=== PATIENT | male | born 1945 | race Caucasian/White ===

== ENCOUNTER → 2017-05-13 | Outpatient (CLI) | payer MEDICARE ==
[~2017-05-13] MED LIST: ALBUAER3 INH; NAPR500T2 PO; TRAM50TA PO
--- NOTE | 2017-05-17 10:32 | RSPPFT ---
DATE OF PROCEDURE: 05/13/17 COMMENTS: Spirometry with FVC of 3.5, FEV1 of 2.4, FEV1/FVC ratio at 67%. A non-significant response to acutely inhaled bronchodilator noted. IMPRESSION: 1. Moderate airways obstruction. 2. Non-significant response to acutely inhaled bronchodilator.
== END ==
LOC: HRSP 09:55
PROVIDERS: ATTEND Family Medicine
DX: R06.02 Shortness of breath (principal)
CPT/HCPCS: 94060

== ENCOUNTER 2018-03-24 07:24 | Inpatient (IN) ==
[2018-03-24] MEDS ORDERED: Sodium Chlor 0.9% Inj 500 ML IV.SIG SCH (08:00)
[2018-03-24] MEDS ORDERED: Chlorhexidine Gluconate 2% 1 Pack (2 Cloths) TOPICAL ONE (08:00)
[2018-03-24] MEDS ORDERED: Metoprolol Tartrate 25 MG Tablet PO ONE (08:00)
[2018-03-24] MEDS ORDERED: Chlorhexidine 4% Topical 120 APPLIC/120 ML Bottle TOPICAL SCH (08:15)
[2018-03-24] MEDS ORDERED: ceFAZolin 2 GM Premix Inj 2 GM/50 ML PIGGYBACK IV.SIG SCH (09:00)
[2018-03-24] MEDS ORDERED: Vancomycin Inj 1,000 MG in Sodium Chlor 0.9% Inj 250 ML IV.SIG SCH (09:00)
[2018-03-24] MEDS ORDERED: SODIUM CHLOR 0.9% IV.SIG SCH (09:00)
[2018-03-24] MEDS ORDERED: Sodium Chlor 0.9% Inj 40 ML, Bupivacaine Liposo PF 1.3% Inj 20 ML P-ARTICULR SCH ×2 (09:00)
[2018-03-24] MEDS ORDERED: TRANEXAMIC ACID IV.SIG SCH (09:00)
[2018-03-24] MEDS ORDERED: fentaNYL Citrate Inj 100 MCG/2 ML Ampul ONE (11:28)
[2018-03-24] MEDS ORDERED: fentaNYL Citrate Inj 250 MCG/5 ML Ampul ONE (11:29)
[2018-03-24] MEDS ORDERED: Famotidine PF Inj 20 MG/2 ML Vial ONE (11:29)
[2018-03-24] MEDS ORDERED: Propofol Inj 500 MG/50 ML Vial ONE (11:46)
[2018-03-24] MEDS ORDERED: Bupivacaine/Dextrose 0.75% Inj 2 ML Ampul ONE (11:47)
[2018-03-24] MEDS ORDERED: Phenylephrine/NS 1000 MCG/10ML Syringe IV.PUSH ONE (11:59)
[2018-03-24] MEDS ORDERED: Bupivacaine/Epinephrine Inj 0.25% 50 ML Vial ONE (12:58)
[2018-03-24] MEDS ORDERED: Post-op Orders (for Pharmacy) OTHER STA (13:50)
[2018-03-24] MEDS ORDERED: Temazepam 15 MG Capsule PO PRN (13:50)
[2018-03-24] MEDS ORDERED: Morphine Inj 4 MG/ML Vial IV.PUSH PRN (13:50)
[2018-03-24] MEDS ORDERED: Bisacodyl 10 MG Supp RECTAL PRN (13:50)
--- NOTE | 2018-03-24 14:06 | P.OP ---
- Preoperative Diagnosis (1) Osteoarthritis of left hip - Postoperative Diagnosis (1) Osteoarthritis of left hip Date of procedure: 03/24/18 Procedure: Left total hip replacement arthroplasty, direct anterior exposure Anesthesia: GETA Surgeon: Emanuel Wagner MD Rounding Machine Operator: MAYURI Aguilera Operation and Findings: EBL: 300 cc INDICATION: This patient is a 72-year-old male with severe arthritis of the left hip. He has had extensive conservative care outlined in the attached records including medications, injections, altered activities and activity modification. He continues to be painful and symptomatic and now presents for surgical treatment. NOTE: Kim Aguilera PA-C was present for the entire surgical procedure as my hotel administrative assistant. In my medical opinion her skill and care was necessary for the proper management of this patient. COMPONENTS: COMPANY: [employer] CUP: [place], 56 mm, 100 series STEM: [place], size 15, high offset, hydroxyapatite-coated HEAD: Metal, 36 mm, +1.5, 12/14 taper PLASTIC: Altrex, 36 mm, neutral PROCEDURE: This patient was brought to the operating room and anesthetized in the supine position. The patient was positioned on the [place] table with the operative leg extended and the contralateral leg held position. The hip and leg was scrubbed with alcohol followed by Hibiclens followed by ChloraPrep and draped sterilely in the clean air suite. Preoperative fluoroscopic images were utilized. A templating x-ray was obtained and printed to be used during the case. A timeout was done and antibiotics were given within a routine time window. A 4 inch incision was made starting 2 cm distal and 2 cm lateral to the anterior superior iliac spine. The tensor fascia sirisha fascia was identified and opened longitudinally in line with the incision. Deep retraction allowed good visualization in the interval between the tensor fascia sirisha and the rectus and this was opened further. The posterior fascia was opened. Crossing vessels were coagulated appropriately. The anterior aspect of the hip capsule was identified. Retractors were placed above and below the capsule. The capsule was opened longitudinally. Stay sutures were utilized creating flaps for the anterior capsule. The femoral neck was cut at the right location and completed with an oscillating saw. The head and neck was removed and taken to the back table. The leg was externally rotated 60 degrees and traction placed on the extremity. The labrum was excised. A portion of the capsule was excised. Visibility was excellent. Retractors were positioned. Starting 6 mm from the final size reamer, we began reaming up to 1 mm from the anticipated size. This was visualized under fluoroscopy. A trial cup was positioned. This also was visualized under fluoroscopy and minor adjustments were made. The final reamer with a 56 reamer was utilized. The final cup was positioned in approximately 40 degrees of abduction and 20 degrees of forward flexion. This is visualized under fluoroscopy and was seated into the final position. Position was very satisfactory. A single hole eliminator was positioned followed by the plastic liner. The final solution was excellent. Traction was let off. The leg was brought into neutral rotation. A lifting took was positioned underneath the greater trochanter and proximal femur. The leg was maximally X rotated and the foot drop to the floor across midline. Retractors were positioned. A box osteotome was used to gain entrance into the top of the femur. The canal was probed with a finder to ensure that we are within the canal. Successive broaching up to the final stem size was accomplished. Trial reduction showed excellent balancing. Adjustments were made. The wound was irrigated copiously and the canal irrigated. The final stem was inserted in proper orientation. Trial again was trialed and the final head side was impacted. The hip was reduced and with 60 degrees of external rotation the leg to be dropped to the floor without evidence of anterior subluxation. Intraoperative x-rays were obtained. Local anesthesia was utilized for a field block including posterior capsule, inferior capsule, cephalad capsule, region of the greater trochanter, tensor fascia sirisha and subcutaneous tissue. The anterior capsule was repaired with interrupted #2 Tycron sutures. The fascia was run with 0 PDS on a loop. Subcu tenuous tissue was approximated 2-0 Vicryl suture and skin with running intradermal 3-0 Vicryl followed by benzoin and Steri-Strips. A sterile dressing was applied The patient was awakened and taken to the recovery room in satisfactory condition FINDINGS: There was severe osteoarthritis of the hip. The final solution appeared excellent. There is no complication appreciated.
--- NOTE | 2018-03-24 14:12 | XR ---
EXAM DATE: 03/24/2018 12:00 AM EDT AGE/SEX: 72 years / Male INDICATIONS: Left anterior hip replacement. CLINICAL DATA: This is the patient's initial encounter. Patient reports that signs and symptoms have been present for 1 day and indicates a pain score of Nonresponsive. MEDICAL/SURGICAL HISTORY: None. None. COMPARISON: No prior exams available for comparison. CONCLUSION: Fluoroscopic images during placement of left hip arthroplasty. Electronically signed by: David Kaiser MD 03/24/2018 2:10 PM EDT
--- NOTE | 2018-03-24 14:15 | P.DCO ---
- Physical Therapy Physical Therapy: Gait training (5 days/week for 2 weeks) Hip: Total hip (Anterior left), Protocol: Left Left Lower Extremity Weight Bearing: Weight bearing as tolerated - Nursing RN: 3 days/week x 2 weeks Nursing: Other Dressing changes: Do not change dressing (If dressing saturated, dry dressing daily) - Certification Need for Home Health services: I have seen patient Tay Malone on 03/24/18. My clinical findings support the need for the requested home health care services because: Need for Home Health Services: Limited mobility due to disease progression, Limited ability to care for self Homebound Certification: I certify that my clinical findings support that this patient is homebound because: Homebound Certification: Unsteady gait/balance
[2018-03-24] MEDS ORDERED: *morphine SULFATE 4 MG/ML PERIprocedure ONLY ONE (15:15)
[2018-03-24] MEDS: Senna/Docusate Sodium 8.6/50 MG Tablet PO SCH (20:58)
[2018-03-24] MEDS: Multivitamin/Minerals Therapeutic Tablet PO SCH (20:58)
[2018-03-25 06:07] VITALS: O2SAT 97
[2018-03-25 06:26] LABS: Hematocrit 39.6 % (39.0-51.0); Hemoglobin 13.9 gm/dL (13.0-17.0)
--- NOTE | 2018-03-25 07:42 | P.PNOP ---
Subjective Interval history: Doing well. Pain controlled. Ambulating to the bathroom with a walker Physical Exam Vital signs: Vital Signs 03/24/18 08:15 03/24/18 14:15 03/24/18 14:30 Temperature 98.6 F 97.8 F Pulse Rate 80 87 82 Respiratory Rate 20 20 18 Blood Pressure 123/72 119/52 L 94/54 L Pulse Oximetry 96 94 L 95 03/24/18 14:45 03/24/18 15:00 03/24/18 15:35 Temperature 98.2 F Pulse Rate 70 66 77 Respiratory Rate 16 20 20 Blood Pressure 101/61 106/59 L 107/62 Pulse Oximetry 97 97 97 03/24/18 16:00 03/24/18 17:23 03/24/18 17:30 Temperature 98 F Pulse Rate 75 Respiratory Rate 18 18 18 Blood Pressure 110/60 Pulse Oximetry 98 03/24/18 20:00 03/24/18 21:00 03/25/18 00:00 Temperature 98.1 F 98.6 F Pulse Rate 81 92 H Respiratory Rate 18 18 18 Blood Pressure 119/56 L 95/50 L Pulse Oximetry 97 96 03/25/18 04:00 Temperature 98.6 F Pulse Rate 94 H Respiratory Rate 17 Blood Pressure 121/57 L Pulse Oximetry 97 Intake & Output 03/24/18 03/25/18 03/25/18 18:59 06:59 18:59 Intake Total 2848.96 / 2848.96 1100 / 1100 Output Total 300 / 300 1100 / 1100 Balance 2548.96 / 2548.96 0 / 0 Weight 93.4 kg 93.8 kg Intake: IV 1508.96 / 1508.96 1100 / 1100 LR 1000 mL Inj 1,000 ML @ 80 1000 / 1000 mls/hr IV.CONT .[id number] [facility] Rx# :[id number] LR 1000 mL Inj 1,000 ML @ 30 1000 / 1000 mls/hr IV.SIG .Q24H [facility] Rx#: [id number] Cyklokapron Inj 896 MG In NS 108.96 / 108.96 Inj 100 ML @ 200 mls/hr IV.SIG ONCE [facility] Rx#:[id number] Vancomycin Inj 1,000 MG In NS 250 / 250 Inj 250 ML @ 250 mls/hr IV.SIG TEST [employer] DRIVER [facility] Rx#:[id number] Ancef 2 GM Premix Inj 2 gm In 50 / 50 50 ml @ 100 mls/hr IV.SIG TEST [employer] DRIVER [facility] Rx#:[id number] Ancef Inj 1,000 MG In NS Inj 100 / 100 100 / 100 100 ML @ 200 mls/hr IV.SIG Q6H [facility] Rx#:[id number] Oral 240 / 240 Anesthesia Amount 1100 / 1100 Output: Urine 1100 / 1100 Estimated Blood Loss 300 / 300 Other: Weight On Admission 89.6 kg Narrative: Dressing dry. Mild swelling. Ambulating without difficulty. No calf tenderness. Leg lengths equal. NVI Results - Labs CBC & Chem 7: 03/25/18 05:34 Laboratory Results - last 24 hr 03/24/18 03/25/18 08:28 05:34 Hgb 13.9 Hct 39.6 Blood Type A Positive Antibody Screen Negative MTS Gel Crossmatch See Detail - Imaging Impressions Hip X-Ray 03/24/18 00:00 CONCLUSION: Fluoroscopic images during placement of left hip arthroplasty. Assessment and Plan - Problem List (1) Osteoarthritis of left hip Code(s): M16.12 - Unilateral primary osteoarthritis, left hip Status: Acute - Assessment and Plan Osteoarthritis left hip. Surgery: Left SARINA, anterior: POD #1. PLAN: Aspirin twice daily, 81 mg. Williams for pain. Discharge home. Home health care. Home PT. Weightbearing as tolerated. No dressing change. Follow-up in 2 weeks. Orthopedically stable
[2018-03-25] MEDS: Multivitamin/Minerals Therapeutic Tablet PO SCH (08:54)
[2018-03-25] MEDS: Senna/Docusate Sodium 8.6/50 MG Tablet PO SCH (08:54)
[2018-03-25 09:50] VITALS: RESP 18
[2018-03-25 12:59] VITALS: BP 139/64; PULSE 86; TEMP 98.7
--- NOTE | 2018-03-25 14:20 | P.DS ---
Date of admission: 03/24/18 07:24 Primary care physician: Willy Barrett MD Attending physician on discharge: Emanuel Wagner Anticipated date of discharge: 03/25/18 Brief History from admission: Mr. Malone has had ongoing left hip pain for 2 years. He initially sought treatment in [place]. Xrays were taken showing advanced arthritis. Conservative measures were recommended. He began using OTC motrin. His pain continued to increased. Updated examination was done by the above June 2017. He was placed on diclofenac and physical therapy was ordered which he pursued for the next 2 months. He was changed to Naprosyn due to side effects. After 6 months of slow decline, surgical treatment was recommended in the form of left total hip arthroplasty. He agreed and now presents for the above. DS: Diagnosis - Discharge Diagnosis (1) Osteoarthritis of left hip Status: Acute DS: Medications - Discharge Medications Prescriptions: aspirin 81 mg PO BID #60 tab hydrocodone-acetaminophen 1 tab PO Q4H PRN #42 tab PRN Reason: Acute Pain DS: Summary Hospital Course: Surgical treatment was performed on the day of admission without complication. She recovered well in PACU and was transferred to the orthopaedic floor. Pain was controlled with IV and oral medications. He was compliant with physical therapy and all precautions. After 1 day he was found to be stable and discharged home with home health care. He was encouraged to continue therapy, to ice the operative limb and to pursue a high fiber diet. He was given prescriptions for [place] and ASA 81mg. - Time Spent with Patient Total time spent providing and/or coordinating discharge services: Greater than 30 minutes - Quality: VTE Deep Vein Thrombosis/Pulmonary Embolism Present on Admission: No Exam Vital signs: Vital Signs 03/24/18 14:15 03/24/18 14:30 03/24/18 14:45 Temperature 97.8 F Pulse Rate 87 82 70 Respiratory Rate 20 18 16 Blood Pressure 119/52 L 94/54 L 101/61 Pulse Oximetry 94 L 95 97 03/24/18 15:00 03/24/18 15:35 03/24/18 16:00 Temperature 98.2 F 98 F Pulse Rate 66 77 75 Respiratory Rate 20 20 18 Blood Pressure 106/59 L 107/62 110/60 Pulse Oximetry 97 97 98 03/24/18 17:23 03/24/18 17:30 03/24/18 20:00 Temperature 98.1 F Pulse Rate 81 Respiratory Rate 18 18 18 Blood Pressure 119/56 L Pulse Oximetry 97 03/24/18 21:00 03/25/18 00:00 03/25/18 04:00 Temperature 98.6 F 98.6 F Pulse Rate 92 H 94 H Respiratory Rate 18 18 17 Blood Pressure 95/50 L 121/57 L Pulse Oximetry 96 97 03/25/18 08:00 03/25/18 12:00 03/25/18 12:18 Temperature 98.4 F 98.7 F Pulse Rate 94 H 86 Respiratory Rate 18 18 18 Blood Pressure 140/63 139/64 Pulse Oximetry 97 97 Intake & Output 03/24/18 03/25/18 03/25/18 18:59 06:59 18:59 Intake Total 2848.96 / 2848.96 1100 / 1100 100 / 100 Output Total 300 / 300 1100 / 1100 Balance 2548.96 / 2548.96 0 / 0 100 / 100 Weight 93.4 kg 93.8 kg Intake: IV 1508.96 / 1508.96 1100 / 1100 100 / 100 LR 1000 mL Inj 1,000 ML @ 80 1000 / 1000 mls/hr IV.CONT .[id number] [facility] Rx# :[id number] LR 1000 mL Inj 1,000 ML @ 30 1000 / 1000 mls/hr IV.SIG .Q24H [facility] Rx#: [id number] Cyklokapron Inj 896 MG In NS 108.96 / 108.96 Inj 100 ML @ 200 mls/hr IV.SIG ONCE [facility] Rx#:[id number] Vancomycin Inj 1,000 MG In NS 250 / 250 Inj 250 ML @ 250 mls/hr IV.SIG [employer] [facility] Rx#:[id number] Ancef 2 GM Premix Inj 2 gm In 50 / 50 50 ml @ 100 mls/hr IV.SIG [employer] [facility] Rx#:[id number] Ancef Inj 1,000 MG In NS Inj 100 / 100 100 / 100 100 / 100 100 ML @ 200 mls/hr IV.SIG Q6H [facility] Rx#:[id number] Oral 240 / 240 Anesthesia Amount 1100 / 1100 Output: Urine 1100 / 1100 Estimated Blood Loss 300 / 300 Other: Weight On Admission 89.6 kg Results Procedures completed during hospitalization: Left total hip arthroplasty, anterior approach Labs on day of discharge: Labs from last 24 hours 03/25/18 05:34 Hgb 13.9 Hct 39.6 - Impressions ITS Impressions Hip X-Ray 03/24/18 00:00 CONCLUSION: Fluoroscopic images during placement of left hip arthroplasty. Discharge Plan - Discharge Disposition Patient Disposition: W/Home Health Service - Discharge Condition Condition: Good - Discharge Order Discharge Orders: Discharge Order (Routine); Ordered 03/25/18 Ordered By: Emanuel Wagner - Physicians Team Primary Care Provider: Willy Barrett Attending Provider: Emanuel Wagner Other Providers: [facility]ency - Rxs /Orders / Referrals /Forms Prescriptions: New aspirin 81 mg Tablet,Chewable 81 mg PO BID Qty: 60 RF: 0 hydrocodone-acetaminophen 7.5-325 mg Tablet 1 tab PO Q4H PRN (Reason: Acute Pain) Qty: 42 RF: 0 Continue acetaminophen [Tylenol Extra Strength] 500 mg Tablet 500 mg PO BID PRN (Reason: Pain) albuterol sulfate 90 mcg/actuation Hfa Aerosol Inhaler 2 puff INHALATION QID PRN (Reason: Shortness Of Breath) Ambulatory Orders / Order Sets / DME: Adjustable Commode 3-in-1 (1 each) (Routine) Location: Determined by Patient Ordered By: Emanuel Wagner Walker With Front Wheels (1 each) (Routine) Location: Determined by Patient Ordered By: Emanuel Wagner Referrals: Willy Barrett MD [Primary Care Provider] - See Instructions - Discharge Instructions Patient Printed Instructions: Hydrocodone/Acetaminophen (By mouth), Aspirin ( By mouth), How to Choose and Use a Walker (GEN), Fall Prevention (DC), Total Hip Replacement (DC) Additional Instructions: IT HAS BEEN OUR PLEASURE TAKING CARE OF YOU! GOOD LUCK WITH YOUR RECOVERY! WE HOPE THAT YOU HAVE HAD AN EXCEPTIONAL STAY HERE AT [facility]! - Post Discharge Care Plan Care Plan Goals: Discharge Care Plan Goals for Total Hip Replacement You had a hip replacement surgery. This means your natural hip was replaced with an artificial joint (prosthesis). You may be recovering at home or in a rehabilitation facility. Either way, you must take care of your new hip. Here are some goals to help you heal well. Directions to Meet your Goals: 1. Activity & Exercises: * Take pain medicine as directed by your doctor. * Dont drive until your doctor says its OK. And never drive while taking opioid pain medicine. * Wear the support stockings you were given in the hospital as directed by your surgeon. * Dont sit for more than 30 to 45 minutes at one time. * Dont lean forward while sitting. * Dont cross your legs. * Keep your feet flat on the floor. Dont turn your foot or leg inward. This stresses your hip joint. * Use an elevated toilet seat for 6 weeks after surgery. * Nap if you are tired, but dont stay in bed all day. * Sit on a firm cushion when you ride in a car and avoid sitting too low. Try not to bend your hip too much when getting in and out of the car. 2. Prevent Falls/Injury: * Follow your doctors orders regarding how much weight to put on the affected leg. * Dont bend at the hip when you bend over. Don't bend at the waist to put on socks and shoes. And avoid picking up items from the floor. * Use a cane, crutches, a walker, or handrails until your balance, flexibility, and strength improve. And remember to ask for help from others when you need it. * Free up your hands so that you can use them to keep balance. Use a whitley pack , apron, or pockets to carry things. * Arrange your household to keep the items you need handy. Keep everything else out of the way. * Remove items that may cause you to fall, such as throw rugs and electrical cords. * Use nonslip bath mats, grab bars, an elevated toilet seat, and a shower chair in your bathroom * Sit on a shower stool or chair when you shower to keep from falling. 3. Precautions: * Prevent infection. Any infection will need to be treated immediately. Call your doctor right away if you think you might have an infection. * Tell your dentist that you have an artificial joint and take antibiotics as prescribed before any dental work. * Tell all your healthcare providers about your artificial joint before any medical procedure. * Maintain a healthy weight. Get help to lose any extra pounds. Added body weight puts stress on the joints. 4. Incision Care: * Prevent infection by washing your hands often. If an infection occurs, it will need to be treated right away. * Call your doctor right away if you think you may have an infection. Symptoms include a fever or an incision that leaks white, green, or yellow fluid. * Don't soak your incision in water until your doctor says its OK. This means no hot tubs, bathtubs, or swimming pools. * Follow your doctor's instructions for changing the dressing. * Dont rub the incision, or apply creams or lotions to it. * If you notice any redness or drainage around the bandage site, contact your surgeon's office immediately. 5. Follow-Up: Do Not miss your follow-up appointment. Keep up with all your appointments and yearly check ups When to call your doctor: Call your doctor right away if you have: Hip pain gets worse Pain or swelling in your calf or leg not related to your incision Tenderness or redness in your calf Fever of 100.4F (38C) or higher, or as directed by your healthcare provider Shaking chills Swelling or redness at the incision site gets worse Fluid draining from the incision Call 911: Call 911 right away if you have: Chest pain Shortness of breath Any pain or tenderness in your calf
== END 2018-03-25 14:43 | disposition home health service (06) ==
LOC: HSDI 07:24 → N06 15:50
PROVIDERS: ADMIT Orthopaedic Surgery Orthopaedic Surgery of the Spine; ATTEND Orthopaedic Surgery Orthopaedic Surgery of the Spine